=== PATIENT | male | born 1995 | race Caucasian/White ===

== ENCOUNTER → 2016-09-16 | Outpatient (REF) | payer OTHER | LOC: M SFHCLERA 19:02 | PROVIDERS: ATTEND Nurse Practitioner Family | DX: J03.90 Acute tonsillitis, unspecified (principal) ==

== ENCOUNTER → 2017-05-05 | Outpatient (REF) | payer OTHER ==
[2017-05-05 12:04] LABS: MEAN CORPUSCULAR HEMOGLOBIN 29.4 pg (27.0-33.0); MEAN CORPUSCULAR HGB CONC 33.3 g/dl (32.0-36.5); MEAN CORPUSCULAR VOLUME 88.1 fl (80.0-96.0); RED CELL DISTRIBUTION WIDTH 12.6 % (11.5-14.5); WHITE BLOOD COUNT 12.6 10^3/uL (4.0-10.0)
[2017-05-05 12:13] LABS: ALBUMIN/GLOBULIN RATIO 1.05 (1.00-1.93); ALKALINE PHOSPHATASE 98 U/L (45-117); ALT/SGPT 160 U/L (12-78); ANION GAP 9 MEQ/L (8-16); AST/SGOT 38 U/L (15-37); BILIRUBIN,TOTAL 0.4 MG/DL (0.2-1.0); BLOOD UREA NITROGEN 20 MG/DL (7-18); CARBON DIOXIDE LEVEL 28 MEQ/L (21-32); CHLORIDE LEVEL 102 MEQ/L (98-107); CHOLESTEROL LEVEL 178 MG/DL (<200); CREATININE FOR GFR 0.91 MG/DL (0.70-1.30); GLOMERULAR FILTRATION RATE > 60.0 (>60); GLUCOSE, FASTING 137 MG/DL (70-105); POTASSIUM SERUM 4.3 MEQ/L (3.5-5.1); SODIUM LEVEL 139 MEQ/L (136-145); TOTAL PROTEIN 7.8 GM/DL (6.4-8.2); TRIGLYCERIDES LEVEL 120 MG/DL (<150)
== END ==
LOC: M SFHCLERA 08:59
PROVIDERS: ATTEND Family Medicine
DX: R19.7 Diarrhea, unspecified (principal)

== ENCOUNTER → 2017-09-19 | Outpatient (CLI) | payer OTHER | LOC: M LRY 12:29 | DX: R05 Cough (principal) ==

== ENCOUNTER → 2021-10-03 | Outpatient (REF) | payer OTHER | LOC: M SMT 16:58 | PROVIDERS: ATTEND Urology | DX: Z30.2 Encounter for sterilization (principal) ==

== ENCOUNTER → 2021-10-29 | Outpatient (REF) | payer OTHER ==
[2021-10-29 09:38] LABS: SEMEN APPEARANCE OPAQUE (OPAQUE); SEMEN VISCOSITY LIQUID (LIQUID); SEMEN pH 8.5 (7.0-8.0); WBC CONCENTRATION <=1 M/ml (<=1 M/ml)
== END ==
LOC: M SMT 09:19
PROVIDERS: ATTEND Urology
DX: Z30.2 Encounter for sterilization (principal)

== ENCOUNTER 2025-03-11 15:46 | Emergency (ER) | payer OTHER ==
[~2025-03-11] VITALS: Ht 188 cm; Wt 109.2 kg
[2025-03-11 15:48] VITALS: BP 143/95; TEMP 98.5; O2SAT 98
[2025-03-11] MEDS ORDERED: CYCL-707 PO (16:09)
[2025-03-11] MEDS ORDERED: VITA100093 PO (18:47)
[2025-03-11] MEDS ORDERED: LEVO50TA5 PO (18:47)
[2025-03-11] MEDS ORDERED: K 10100T PO (18:47)
[2025-03-11] MEDS ORDERED: VITA1TAB82 PO (18:47)
[2025-03-11] MEDS ORDERED: VALI5TAB PO (23:32)
[2025-03-11] MEDS ORDERED: HOLTER MONITOR XX (23:32)
== END 2025-03-11 18:30 | disposition left against medical advice (07) ==
LOC: M ED 15:46
DX: Z53.21 Procedure and treatment not carried out due to patient leaving prior to being seen by health care provider (principal)

== ENCOUNTER 2025-03-11 18:28 | Emergency (ER) | payer OTHER ==
[~2025-03-11] VITALS: Ht 188 cm; Wt 111.7 kg
[~2025-03-11 18:28] MED LIST: CYCL-707 PO
[2025-03-11] MEDS ORDERED: VITA1TAB82 PO (18:47)
[2025-03-11] MEDS ORDERED: VITA100093 PO (18:47)
[2025-03-11] MEDS ORDERED: LEVO50TA5 PO (18:47)
[2025-03-11] MEDS ORDERED: K 10100T PO (18:47)
[2025-03-11 18:49] LABS: BASO # 0.1 10^3/uL (0.0-0.2); BASO % 0.8 % (0.0-1.0); EOS # 0.1 10^3/uL (0.0-0.5); EOS % 0.8 % (0.0-3.0); LYMPH # 2.2 10^3/uL (1.5-5.0); LYMPH % 28.3 % (24.0-44.0); MONO # 0.6 10^3/uL (0.0-0.8); MONO % 7.1 % (2.0-8.0); NEUTROPHILS # 5.0 10^3/uL (1.5-8.5); NEUTROPHILS % 62.9 % (36.0-66.0); PLATELET COUNT, AUTOMATED 285 10^3/uL (150-450)
[2025-03-11 19:21] LABS: CALCIUM LEVEL 9.2 MG/DL (8.5-10.1); CARBON DIOXIDE LEVEL 19 MMOL/L (20-31); CHLORIDE LEVEL 101 MMOL/L (98-107); CREATININE FOR GFR 0.92 MG/DL (0.70-1.30); FREE T4 1.61 NG/DL (0.89-1.76); GLOMERULAR FILTRATION RATE > 90.0 (>60); POTASSIUM SERUM 4.8 MMOL/L (3.5-5.1); SODIUM LEVEL 137 MMOL/L (136-145)
[2025-03-11 20:04] LABS: APPEARANCE, URINE CLEAR (CLEAR); BACTERIA, URINE AUTO NEGATIVE (NEGATIVE); BILIRUBIN, URINE AUTO NEGATIVE (NEGATIVE); BLOOD, URINE BLOOD NEGATIVE (NEGATIVE); GLUCOSE, URINE (UA) AUTO NEGATIVE (NEGATIVE); KETONE, URINE AUTO 1+ mg/dL (NEGATIVE); LEUKOCYTE ESTERASE, URINE AUTO NEGATIVE (NEGATIVE); NITRITE, URINE AUTO NEGATIVE (NEGATIVE); PROTEIN, URINE AUTO NEGATIVE (NEGATIVE); RBC, URINE AUTO 0 /HPF (0-3); SPECIFIC GRAVITY URINE AUTO 1.015 (1.002-1.035); SQUAMOUS EPITHELIAL CELL UR AU 0 /HPF (0-6); UROBILINOGEN, URINE AUTO 0.2 mg/dL (0.0-2.0); WBC, URINE AUTO 0 /HPF (0-3)
[2025-03-11] MEDS: NS (Normal Saline) 0.9% 1,000 ML IV ONE ×2 (20:14→20:23)
[2025-03-11 20:30] LABS: MAGNESIUM LEVEL 1.7 MG/DL (1.8-2.4)
[2025-03-11 20:36] LABS: CK-MB VALUE MASS 1.2 NG/ML (<3.6); CPK CREATINE PHOSPHOKINASE 115 U/L (46-171); MB/CK RELATIVE INDEX 1.04 (< OR =4)
[2025-03-11] MEDS ORDERED: ISOVUE-370 76% 100 ML VIAL As Ordered ONE (20:59)
[2025-03-11] MEDS: MAG SULF 1GM/100ML (MAG RUN) 1 GM in IV 1 EA IV ONE (21:33)
[2025-03-11] MEDS ORDERED: HOME MED LIST COMPLETE! XX SCH (21:40)
[2025-03-11 22:14] LABS: VENOUS BASE EXCESS -3.1 (-2.0-2.0); VENOUS HCO3 22.4 MMOL/L (23.0-27.0); VENOUS O2 SATURATION 71.2 % (60.0-80.0); VENOUS PARTIAL PRESSURE CO2 41.9 mmHg (38.0-50.0); VENOUS PARTIAL PRESSURE O2 39.3 mmHg (30.0-50.0); VENOUS PH 7.346 UNITS (7.330-7.430); VENOUS STANDARD HCO3 21.3 MMOL/L; VENOUS TOTAL CO2 23.7 MMOL/L (24.0-28.0)
[2025-03-11] MEDS ORDERED: VALI5TAB PO (23:32)
[2025-03-11] MEDS ORDERED: HOLTER MONITOR XX (23:32)
[2025-03-12] VITALS: BP 123/87; O2SAT 99
[2025-03-12 00:19] VITALS: TEMP 97.8
== END 2025-03-12 00:47 | disposition home or self-care (01) ==
LOC: M ED 18:28
DX: M54.50 Low back pain, unspecified (principal); R00.0 Tachycardia, unspecified; E86.0 Dehydration; E83.42 Hypomagnesemia; I45.81 Long QT syndrome; I10 Essential (primary) hypertension; E03.9 Hypothyroidism, unspecified; F17.200 Nicotine dependence, unspecified, uncomplicated; F12.10 Cannabis abuse, uncomplicated; Z79.899 Other long term (current) drug therapy
CPT/HCPCS: 71045; 71275; 74174; 80047; 80048; 81001; 82550; 82553; 82803; 83735; 84439; 84443; 84484; 85025; 93005; 93041; 94760; 96361; 96365; 96375; 99285; J3360; J3475; Q9967